=== PATIENT | male | born 1985 | race Caucasian/White ===

== ENCOUNTER → 2020-11-23 | Outpatient (CLI) | payer OTHER ==
--- NOTE | 2020-11-23 14:13 | KCIC ---
Examination: MRI of the right hand without contrast HISTORY: Mass in the right hand COMPARISON: None available TECHNIQUE: Multiplanar, multisequence MR imaging of the right hand without contrast FINDINGS: The alignment of the metacarpophalangeal joints grossly appears unremarkable. There is a 0.8 x 0.7 cm high T2, intermediate T1 signal focus identified dorsal to the extensor tendon at the level of third metacarpophalangeal joint in the soft tissue. The attachment of the extensor tendons, flexor tendons grossly appears unremarkable. IMPRESSION: There is a 0.8 x 0.7 cm high T2, intermediate T1 signal focus identified dorsal to the extensor tendo n at the level of the third metacarpophalangeal joint in the soft tissue. Differential includes gangl ion cyst, giant cell tumor of the tendon sheath or hematoma or mass is not excluded. Recommend furthe r imaging with IV contrast. Electronically signed by: Ross Souza MD (11/23/2020 2:10 PM) [id number]
== END ==
LOC: KCIC MRI 09:15
PROVIDERS: ATTEND Family Medicine
DX: R22.31 Localized swelling, mass and lump, right upper limb (principal)
CPT/HCPCS: 73218